=== PATIENT | female | born 1975 | race African-American/Black ===

== ENCOUNTER 2018-04-28 17:36 | Emergency (ER) | payer MEDICAID ==
[~2018-04-28] VITALS: Ht 157.5 cm; Wt 67.0 kg
[2018-04-28 21:05] VITALS: BP 111/58
== END 2018-04-29 03:43 | disposition left against medical advice (07) ==
LOC: ER 17:36
DX: Z53.21 Procedure and treatment not carried out due to patient leaving prior to being seen by health care provider (principal)